=== PATIENT | female | born 1985 | race Caucasian/White ===

== ENCOUNTER 2025-05-30 11:03 | Emergency (ER) | payer OTHER, SELFPAY ==
[2025-05-30 11:07] VITALS: BP 118/77
[2025-05-30 11:56] VITALS: BMI 28.2
--- NOTE | 2025-05-30 12:47 | ED.GENMED ---
History of Present Illness
General
Chief Complaint: Musculo-Skeletal Complaint
Source: patient
Exam Limitations: none
Time Seen by Provider: 05/30/25 11:51
Nursing documentation reviewed up to this point in time: agreed with
History of Present Illness
History of Present Illness:
Patient is a 39 female who presents to the ER complaining of right shoulder pain that radiates down to her right hand for the past several days. She denies any injury. She has had this several times in the past and always thought she may have
slept wrong however it has resolved on its own. Patient reports she does not like taking medicine and has tried natural anti-inflammatories but no medications. She presently does not have a family doctor. She does feel little soreness in the
right side of her neck and on her shoulder. she denies any chiropractic manipulation. Denies any heavy lifting or injury.
She is right-hand dominant.
Past History
Past History
ED Past Medical History: None
ED Past Surgical History: (X2)
Social History
Tobacco: Non-smoker
Alcohol: Daily (Wine 1 glass)
Personal:
Living: with family
Phy Exam
General Physical Exam
General Presentation: no apparent distress
General age: appears stated age
General Skin: warm and dry
General Habitus: normal
General Mental: alert
General Hydration: appears well hydrated
Neurological Exam
Neurological Exam: alert and oriented x3
Musculoskeletal Exam
Musculoskeletal Exam: other (Right upper extremity normal exam mildly tender to anterior shoulder strong head of it strength normal distal sensation)
Skin Exam
Skin Exam: normal color and warm/dry
Psychiatric Exam
Psychiatric Exam: normal mood/affect
Course
Orders/Labs/Results
Orders:
Orders
05/30/25 12:42
CR Shoulder - Right Min 2 View Urgent
Reason For Exam: pain
05/30/25 12:47
Dexamethasone Pf [Decadron] 10 mg PO NOW STA
Vital Signs
Initial and Last Documented VS:
Initial Vital Signs
Temp Pulse Resp BP Pulse Ox
98 F 82 20 118/77 99
05/30/25 11:07 05/30/25 11:07 05/30/25 11:07 05/30/25 11:07 05/30/25 11:07
Last Documented Vital Signs
Temp Pulse Resp BP Pulse Ox
98 F 82 20 118/77 99
05/30/25 11:07 05/30/25 11:07 05/30/25 11:07 05/30/25 11:07 05/30/25 12:49
MDM/Problems Addressed
MDM/Problems Addressed:
Symptoms are consistent with radiculopathy. Patient with no injury. She has had this once in the past. She has good strength on exam very mild right-sided neck pain no bony neck tenderness no neurological deficit tender throughout the shoulder
region findings of calcific tendinitis on the shoulder x-ray however symptoms are consistent with radiculopathy as documented. She does not like to take medicine and only has taken a natural anti-inflammatory herbs. Will give 1 dose of oral
Decadron will DC with 4 days of steroids.
*Radiology
Radiology exam reviewed: preliminary read by ED provider (No fracture findings consistent with calcific tendinitis)
*Pulse Oximetry
SaO2: 99
Oxygen Mode of Delivery: Room air
Patient hypoxic: no
*Critical Care Note
Total Time (30-74mins, 75-104mins- exclusive of procedures): Not Applicable
ED Attending Note
-
Portions of this chart may have been created with voice recognition software.� Occasional wrong word or��sound alike� substitutions may have occurred due to the inherent limitations of voice recognition software.
Discharge Plan
Departure
Patient Disposition: Home (Routine Discharge)
Date of Disposition: 05/30/25
Time of Disposition: 13:51
Patient with high blood pressure during this ER visit?: No
Condition: Fair
Covid-19: Not Applicable
Discharge Problem:
Radiculopathy affecting upper extremity
Instructions: Radiculopathy of the neck and back (including sciatica) (DC)
Prescriptions:
New
prednisone 20 mg tablet
40 mg PO DAILY Qty: 8 0RF
No Action
amoxicillin-pot clavulanate 875-125 mg tablet
1 tab PO BID Qty: 14 0RF
Referrals:
NONE,* [Family Provider, Internal Medicine]
Yury Glass MD [Active, Orthopedics]
Activity Restrictions/Additional Instructions:
As discussed symptoms are consistent with most likely radiculopathy. Please follow-up with orthopedics for further evaluation. Call today to make an appointment the next 2 days. You may need additional imaging. You were given 1 dose of oral
steroids here in the ER. A prescription for steroids was sent to take for the next 4 days starting tomorrow.
Return if any worsening of symptoms
Interventions
Interventions:
*Risk Screen - Suicide Last Done: 05/30/25 11:56
*General Assessment Last Done: 05/30/25 11:07
*Neglect/Abuse Screening Last Done: 05/30/25 11:56
ED-Musculoskeletal Assessment Last Done: 05/30/25 11:55
Discharge Date and Time
Print Language: [place]
[2025-05-30] MEDS: DECADRON 10 MG PO (13:08)
== END 2025-05-30 14:06 | disposition home or self-care (01) ==
LOC: EMR 11:03
PROVIDERS: EMERGENCY PHYSICIAN Emergency Medicine
DX: M54.10 Radiculopathy, site unspecified (principal); Z98.891 History of uterine scar from previous surgery
CPT/HCPCS: 99283; 73030